=== PATIENT | female | born 1985 | race African-American/Black ===

== ENCOUNTER 2016-10-07 17:24 | Emergency (ER) | payer OTHER ==
--- NOTE | ~2016-10-07 | CR230 ---
[facility] A Service of [facility] & [facility] RADIOLOGY TEXT RESULTS PATIENT: CONCETTA VAUGHAN LOCATION: CFTX : 89 UNIT #: [id number] AGE: [address]: Poly Steward APRN SEX: F ORDER DR: [id number] [facility] [address] [place], [place] [address] [id number] E MR#: [id number] Acc #: [id number] NAME: CONCETTA VAUGHAN : 1985 SEX: F STUDY DATE/TIME: 10/07/2016 18:05 UNIT: TX ROOM: STUDY DESCRIPTION: CR Shoulder Min 2 View Rt Attending Physician: Poly Steward A.P.R.N. Referring Physician: Mike Schmidt M.D. Ordering Physician: Bart Nieves M.D. Primary Care Physician: Val Primary Care Physician MEDICAL IMAGING REPORT This report is preliminary unless electronic signature is present EXAM Right shoulder, 3 views. DATE OF EXAM 10/07/2016 INDICATIONS Right shoulder pain for 2 weeks. No injury. COMPARISON No comparisons. FINDINGS No fracture or dislocation. The joint spaces are preserved. The soft tissue structures are unremarkable. IMPRESSION Negative. Dictated by... Jay Jay Johnson M.D. THIS IS AN ELECTRONICALLY VERIFIED REPORT Jay Jay Johnson M.D. at 10/08/2016 10:03 AM JYOTHI/amber TD: 10/07/2016 22:58 JOB #: [id number] MEDICAL IMAGING REPORT Page 1 of 1 COPY
--- NOTE | ~2016-10-07 | CR63 ---
[facility] A Service of [facility] & [facility] RADIOLOGY TEXT RESULTS PATIENT: CONCETTA VAUGHAN LOCATION: CFTX : 89 UNIT #: [id number] AGE: [address]: Poly Steward APRN SEX: F ORDER DR: [id number] [facility] [address] [place], [place] [address] [id number] E MR#: [id number] Acc #: [id number] NAME: CONCETTA VAUGHAN : 1985 SEX: F STUDY DATE/TIME: 10/07/2016 18:05 UNIT: [facility] ROOM: STUDY DESCRIPTION: CR Chest 2 View Attending Physician: Poly Steward A.P.R.N. Referring Physician: Mike Schmidt M.D. Ordering Physician: Ed Glen Nieves M.D. Primary Care Physician: No Primary Care Physician MEDICAL IMAGING REPORT This report is preliminary unless electronic signature is present EXAM PA and lateral chest. DATE OF EXAM 10/07/2016 INDICATIONS Chest and right shoulder pain for 2 weeks. COMPARISON 04/17/2014 FINDINGS Lungs are well expanded and clear. The heart size is normal. The visualized osseous structures are unremarkable. IMPRESSION Negative chest. Dictated by... Jay Jay Johnson M.D. THIS IS AN ELECTRONICALLY VERIFIED REPORT Jay Jay Johnson M.D. at 10/08/2016 10:03 AM JYOTHI/amber TD: 10/07/2016 22:57 JOB #: [id number] MEDICAL IMAGING REPORT Page 1 of 1 COPY
[~2016-10-07 17:24] MED LIST: ALBUTEROL17 GM; CIPRO PO; COUGH SYRUP; MOTRIN600 MG PO; NAPROSYN500 MG PO; PHENERGAN25 MG PO; PYRIDIUM100 MG PO; ZOFRAN ODT4 MG PO
== END 2016-10-07 19:05 | disposition home or self-care (01) ==
LOC: CFTX 17:24
DX: M25.511 Pain in right shoulder (principal); R20.2 Paresthesia of skin; R05 Cough; F17.210 Nicotine dependence, cigarettes, uncomplicated
CPT/HCPCS: 71020; 73030; 99284